=== PATIENT | male | born 1980 | race African-American/Black ===

== ENCOUNTER 2018-11-10 12:11 | Emergency (ER) | payer OTHER ==
[~2018-11-10] VITALS: Ht 180.3 cm; Wt 108.9 kg
[~2018-11-10 12:11] MED LIST: ALBUTEROL2.5 MG/0.1 INH; AMOXICILLIN 50500 M1 PO; AUGMENTIN 875875 M1 PO; BENZTROPINE MES1 MG PO; FLONASE 0.05%50 MCG NASAL; HALOPERIDOL 2 MG2 M1 NG; LAMISIL250 MG PO; NOHOMEMEDICATIONS; PREDNISONE 20 M20 M1 PO; ZESTRIL10 MG; ZPAK PO
[2018-11-10 12:17] VITALS: BP 142/83
== END 2018-11-10 12:56 | disposition home or self-care (01) ==
LOC: ER 12:11
DX: J03.80 Acute tonsillitis due to other specified organisms (principal); B96.89 Other specified bacterial agents as the cause of diseases classified elsewhere; F17.210 Nicotine dependence, cigarettes, uncomplicated; I10 Essential (primary) hypertension; F20.9 Schizophrenia, unspecified

== ENCOUNTER 2018-12-13 14:30 | Emergency (ER) | payer OTHER ==
[~2018-12-13] VITALS: Ht 180.3 cm; Wt 104.3 kg
[2018-12-13] MEDS ORDERED: NORVASC2.5 MG PO (14:38)
[2018-12-13] MEDS ORDERED: TOBRADEX EYE DRO5 ML OPHTHALMIC (15:12)
[2018-12-13 16:42] VITALS: BP 116/61
== END 2018-12-13 15:25 | disposition home or self-care (01) ==
LOC: ER 14:30
DX: T15.11XA Foreign body in conjunctival sac, right eye, initial encounter (principal); I10 Essential (primary) hypertension; F20.9 Schizophrenia, unspecified; F17.210 Nicotine dependence, cigarettes, uncomplicated; W45.8XXA Other foreign body or object entering through skin, initial encounter; Y92.89 Other specified places as the place of occurrence of the external cause; Y93.89 Activity, other specified; Y99.8 Other external cause status